=== PATIENT | female | born 1955 | race Two or more races ===

== ENCOUNTER → 2017-11-13 | Outpatient (CLI) | payer OTHER ==
[~2017-11-13] MED LIST: BIOTIN1 GM; CALCIUM1 TAB; CLEOCIN HCL300 MG PO; MOTRIN800 MG PO; PROLIA60 MG/1 ML; WELLBUTRIN100 MG
== END | disposition home or self-care (01) ==
LOC: PPH VACUNA 08:18
DX: Z23 Encounter for immunization (principal)

== ENCOUNTER 2018-05-20 13:03 | Outpatient (CLI) | payer OTHER | END 2018-05-20 16:41 | disposition home or self-care (01) | LOC: RAD 501 13:03 | DX: M25.571 Pain in right ankle and joints of right foot (principal); M25.532 Pain in left wrist ==

== ENCOUNTER 2018-06-04 08:29 | Outpatient (CLI) | payer OTHER | END 2018-06-04 08:48 | disposition home or self-care (01) | LOC: RAD 501 08:29 | DX: M79.672 Pain in left foot (principal); S93.491A Sprain of other ligament of right ankle, initial encounter; M79.642 Pain in left hand ==

== ENCOUNTER → 2018-06-05 | Outpatient (CLI) | payer OTHER | END | disposition home or self-care (01) | LOC: NUCLEAR 11:00 | DX: M81.0 Age-related osteoporosis without current pathological fracture (principal) ==

== ENCOUNTER 2018-06-12 13:35 | Outpatient (CLI) | payer OTHER | END 2018-06-12 15:00 | disposition home or self-care (01) | LOC: MAMO-SONO 13:35 | DX: Z12.31 Encounter for screening mammogram for malignant neoplasm of breast (principal); N64.4 Mastodynia; N60.11 Diffuse cystic mastopathy of right breast; N60.12 Diffuse cystic mastopathy of left breast ==

== ENCOUNTER 2018-07-24 10:05 | Outpatient (CLI) | payer OTHER | END 2018-07-24 10:08 | disposition home or self-care (01) | LOC: SONOGRAMA 10:05 | DX: M79.672 Pain in left foot (principal) ==

== ENCOUNTER 2018-09-09 08:53 | Outpatient (CLI) | payer OTHER | END 2018-09-09 09:11 | disposition home or self-care (01) | LOC: RAD 501 08:53 | DX: M54.2 Cervicalgia (principal) ==

== ENCOUNTER 2019-07-09 10:54 | Outpatient (CLI) | payer OTHER | END 2019-07-09 12:31 | disposition home or self-care (01) | LOC: MAMO-SONO 10:54 | DX: Z12.31 Encounter for screening mammogram for malignant neoplasm of breast (principal); N60.11 Diffuse cystic mastopathy of right breast; N60.12 Diffuse cystic mastopathy of left breast; N64.4 Mastodynia; Z87.898 Personal history of other specified conditions; Z09 Encounter for follow-up examination after completed treatment for conditions other than malignant neoplasm ==

== ENCOUNTER 2020-08-17 13:09 | Outpatient (CLI) | payer OTHER | END 2020-08-17 13:13 | disposition home or self-care (01) | LOC: NUCLEAR 13:09 | PROVIDERS: ATTEND Internal Medicine Rheumatology | DX: M81.0 Age-related osteoporosis without current pathological fracture (principal) ==

== ENCOUNTER 2020-10-02 11:17 | Outpatient (CLI) | payer OTHER | END 2020-10-02 14:37 | disposition home or self-care (01) | LOC: MAMO-SONO 11:17 | PROVIDERS: ATTEND Obstetrics & Gynecology Maternal & Fetal Medicine | DX: Z12.31 Encounter for screening mammogram for malignant neoplasm of breast (principal); N64.59 Other signs and symptoms in breast ==

== ENCOUNTER 2021-05-11 11:09 | Outpatient (CLI) | payer OTHER | END 2021-05-11 11:22 | disposition home or self-care (01) | LOC: RAD 11:09 | PROVIDERS: ATTEND Physical Medicine & Rehabilitation | DX: M16.12 Unilateral primary osteoarthritis, left hip (principal); M46.1 Sacroiliitis, not elsewhere classified; M84.88 Other disorders of continuity of bone, other site ==

== ENCOUNTER 2021-11-16 08:49 | Outpatient (CLI) | payer OTHER | END 2021-11-16 08:50 | disposition home or self-care (01) | LOC: RAD 08:49 | DX: M16.0 Bilateral primary osteoarthritis of hip (principal) ==

== ENCOUNTER 2022-02-08 11:53 | Outpatient (CLI) | payer OTHER | END 2022-02-08 12:02 | disposition home or self-care (01) | LOC: LAB 11:53 | PROVIDERS: ATTEND Radiology Diagnostic Radiology | DX: R10.32 Left lower quadrant pain (principal) ==

== ENCOUNTER 2022-02-08 12:46 | Outpatient (CLI) | payer OTHER | END 2022-02-08 12:58 | disposition home or self-care (01) | LOC: TOM 12:46 | PROVIDERS: ATTEND Obstetrics & Gynecology Maternal & Fetal Medicine | DX: K57.92 Diverticulitis of intestine, part unspecified, without perforation or abscess without bleeding (principal); R10.2 Pelvic and perineal pain ==

== ENCOUNTER 2022-05-23 09:18 | Outpatient (CLI) | payer OTHER | END 2022-05-23 09:40 | disposition home or self-care (01) | LOC: MAMO-SONO 09:18 | PROVIDERS: ATTEND Obstetrics & Gynecology Maternal & Fetal Medicine | DX: N63.0 Unspecified lump in unspecified breast (principal); Z12.31 Encounter for screening mammogram for malignant neoplasm of breast; N64.4 Mastodynia; N60.11 Diffuse cystic mastopathy of right breast ==

== ENCOUNTER 2022-09-13 13:15 | Outpatient (CLI) | payer OTHER | END 2022-09-13 13:19 | disposition home or self-care (01) | LOC: NUCLEAR 13:15 | PROVIDERS: ATTEND Internal Medicine Rheumatology | DX: M81.0 Age-related osteoporosis without current pathological fracture (principal) ==

== ENCOUNTER 2023-06-25 09:15 | Outpatient (CLI) | payer OTHER | END 2023-06-25 09:16 | disposition home or self-care (01) | LOC: MAMO-SONO 09:15 | PROVIDERS: ATTEND Obstetrics & Gynecology Maternal & Fetal Medicine | DX: Z12.31 Encounter for screening mammogram for malignant neoplasm of breast (principal); N63.0 Unspecified lump in unspecified breast; N64.4 Mastodynia; N60.11 Diffuse cystic mastopathy of right breast ==

== ENCOUNTER 2023-08-14 09:39 | Outpatient (CLI) | payer OTHER | END 2023-08-14 09:57 | disposition home or self-care (01) | LOC: RAD 09:39 | PROVIDERS: ATTEND Obstetrics & Gynecology Maternal & Fetal Medicine | DX: S69.91XA Unspecified injury of right wrist, hand and finger(s), initial encounter (principal) ==

== ENCOUNTER 2024-08-05 10:49 | Outpatient (CLI) | payer OTHER | END 2024-08-05 11:21 | disposition home or self-care (01) | LOC: MAMO-SONO 10:49 | PROVIDERS: ATTEND Obstetrics & Gynecology Maternal & Fetal Medicine | DX: M54.2 Cervicalgia (principal); N63.0 Unspecified lump in unspecified breast; Z12.31 Encounter for screening mammogram for malignant neoplasm of breast; N64.4 Mastodynia; N60.11 Diffuse cystic mastopathy of right breast ==

== ENCOUNTER 2024-08-25 08:20 | Outpatient (CLI) | payer OTHER | END 2024-08-25 08:23 | disposition home or self-care (01) | LOC: RAD 08:20 | PROVIDERS: ATTEND Physical Medicine & Rehabilitation | DX: M16.12 Unilateral primary osteoarthritis, left hip (principal); M25.552 Pain in left hip ==

== ENCOUNTER 2024-09-14 13:37 | Outpatient (CLI) | payer OTHER | END 2024-09-14 13:43 | disposition home or self-care (01) | LOC: NUCLEAR 13:37 | PROVIDERS: ATTEND Internal Medicine Rheumatology | DX: M81.0 Age-related osteoporosis without current pathological fracture (principal) ==

== ENCOUNTER 2025-05-04 09:26 | Outpatient (CLI) | payer OTHER | END 2025-05-04 09:34 | disposition home or self-care (01) | LOC: MRI 09:26 | PROVIDERS: ATTEND Physical Medicine & Rehabilitation | DX: M25.562 Pain in left knee (principal); M17.12 Unilateral primary osteoarthritis, left knee | CPT/HCPCS: 73721 ==

== ENCOUNTER 2025-09-13 07:13 | Outpatient (CLI) | payer OTHER | END 2025-09-13 07:20 | disposition home or self-care (01) | LOC: RAD 07:13 | PROVIDERS: ATTEND Internal Medicine | DX: I10 Essential (primary) hypertension (principal); Z12.11 Encounter for screening for malignant neoplasm of colon; Z12.39 Encounter for other screening for malignant neoplasm of breast; Z12.31 Encounter for screening mammogram for malignant neoplasm of breast ==

== ENCOUNTER 2025-09-27 09:43 | Outpatient (CLI) | payer OTHER | END 2025-09-27 09:44 | disposition home or self-care (01) | LOC: NUCLEAR 09:43 | PROVIDERS: ATTEND Internal Medicine Rheumatology | DX: M81.0 Age-related osteoporosis without current pathological fracture (principal) ==